=== PATIENT | female | born 1965 | race Caucasian/White ===

== ENCOUNTER 2016-10-11 10:44 | Emergency (ER) | payer BC ==
[~2016-10-11] VITALS: Ht 160 cm; Wt 65.0 kg
[~2016-10-11 10:44] MED LIST: ALPRAZOLAM ER0.5 MG; CEFUROXIME500 MG; LEVOTHYROXINE75 MCG; MOBIC7.5 MG PO; OXYCODONE-APAP1 EAC6
[2016-10-11 12:08] LABS: ADD MIUA? YES; BILIRUBIN NEGATIVE; BLOOD SMALL; COLOR YELLOW ((YELLOW)); GLUCOSE (STRIP) NEGATIVE; KETONES NEGATIVE; LEUKOCYTES SMALL; NITRITE NEGATIVE; PROTEIN (STRIP) 30; SPECIFIC GRAVITY 1.012 (1.000-1.030); UROBILINOGEN 0.2 MG/DL (0.2-1.0)
[2016-10-11 12:19] LABS: BACTERIA 1+ /HPF; EPITHELIAL CELLS RARE /HPF; MUCUS TRACE /LPF; RED BLOOD CELLS 15-20 /HPF (0-5); UCUL ADDED? NO; WHITE BLOOD CELLS 15-20 /HPF (0-5)
[2016-10-11 12:30] LABS: EOSINOPHIL (%) 0.3 % (0-5); HEMATOCRIT 36.5 % (36.0-46.0); LYMPHOCYTE COUNT 0.7 K/uL (1.0-2.8); MCH 31.1 PG (29.0-34.0); MCHC 33.7 G/DL (30.0-36.0); MCV 92.2 FL (83-99); MEAN PLAT.VOLUME 9.6 uM^3 (9.5-12.4); MONOCYTE (%) 9.7 % (3-12); MONOCYTE COUNT 0.7 K/uL (0-0.8); NEUTROPHIL (%) 79.3 % (45-76); NEUTROPHIL COUNT 5.7 K/uL (1.8-6.4); PLATELET COUNT 233 K/uL (156-360); RBC DIS.WIDTH-CV 12.8 % (11.8-14.6); RBC DIS.WIDTH-SD 42.2 % (39-53); RED BLOOD COUNT 3.96 M/uL (3.80-5.20); WHITE BLOOD COUNT 7.1 K/uL (4.1-10.2)
[2016-10-11 12:45] LABS: AMYLASE 24 IU/L (1-118); CHLORIDE 104 mEq/L (99-109); POTASSIUM 4.1 mEq/L (3.7-5.4); SODIUM 140 mEq/L (136-147)
[2016-10-11 12:47] LABS: GLUCOSE 96 mg/dL (70-99)
[2016-10-11 12:48] LABS: ANION GAP 9 MEQ/L (2-14)
[2016-10-11 12:49] LABS: TOTAL BILIRUBIN 0.6 mg/dL (0.0-1.0)
[2016-10-11 12:50] LABS: ALKALINE PHOSPHATASE 65 IU/L (3-129)
[2016-10-11 12:51] LABS: GFR ESTIMATE (CALCULATED) > 59 mL/min/
[2016-10-11 12:52] LABS: UREA NITROGEN (BUN) 11 mg/dL (9-23)
[2016-10-11 12:54] LABS: LIPASE 14 U/L (1.0-51.0)
[2016-10-11 13:00] LABS: QUANTITATIVE HCG < 4.0 MIU/ML
[2016-10-11 16:10] VITALS: BP 108/67
[2016-10-12] MEDS ORDERED: SYNTHROID100 MCG PO (09:30)
[2016-10-12] MEDS ORDERED: EFFEXOR XR75 MG PO (09:30)
[2016-10-12] MEDS ORDERED: LETROZOLE2.5 MG PO (09:30)
[2016-10-12] MEDS ORDERED: LAMICTAL100 MG PO (09:31)
[2016-10-12] MEDS ORDERED: CLONAZEPAM1 MG PO (09:34)
[2016-10-12] MEDS ORDERED: ZOFRAN8 MG PO (09:34)
[2016-10-12] MEDS ORDERED: OXYCODONE-APAP1 EACH PO (09:34)
[2016-10-12] MEDS ORDERED: FLEXERIL10 MG PO (09:34)
[2016-10-12] MEDS ORDERED: REGLAN10 MG PO (15:33)
== END 2016-10-11 16:13 | disposition home or self-care (01) ==
LOC: EME 10:44
PROVIDERS: Physician Assistant
DX: N12 Tubulo-interstitial nephritis, not specified as acute or chronic (principal); N39.0 Urinary tract infection, site not specified; R11.2 Nausea with vomiting, unspecified; G89.29 Other chronic pain; E03.9 Hypothyroidism, unspecified; Z87.891 Personal history of nicotine dependence
CPT/HCPCS: 71020; 74176; 80053; 81003; 82150; 83690; 84702; 85025; 87077; 87086; 87186; 99281; 99285; J0744; J1885; J2405; J3010; J7030

== ENCOUNTER 2016-10-12 10:17 | Emergency (ER) | payer BC ==
[~2016-10-12] VITALS: Ht 160 cm; Wt 75.0 kg
[~2016-10-12 10:17] MED LIST changes: +CLONAZEPAM1 MG PO; +EFFEXOR XR75 MG PO; +FLEXERIL10 MG PO; +LAMICTAL100 MG PO; +LETROZOLE2.5 MG PO; +OXYCODONE-APAP1 EACH PO; +SYNTHROID100 MCG PO; +ZOFRAN8 MG PO
[2016-10-12 12:13] LABS: EOSINOPHIL (%) 1.4 % (0-5); EOSINOPHIL COUNT 0.1 K/uL (0-0.3); HEMATOCRIT 35.5 % (36.0-46.0); IMMATURE GRANULOCYTE (%) 0.3 % (0.0-0.7); IMMATURE GRANULOCYTE COUNT 0.2 K/uL; LYMPHOCYTE COUNT 0.9 K/uL (1.0-2.8); MCH 31.3 PG (29.0-34.0); MCHC 33.8 G/DL (30.0-36.0); MCV 92.7 FL (83-99); MEAN PLAT.VOLUME 9.7 uM^3 (9.5-12.4); MONOCYTE (%) 9.3 % (3-12); MONOCYTE COUNT 0.6 K/uL (0-0.8); NEUTROPHIL COUNT 4.8 K/uL (1.8-6.4); PLATELET COUNT 275 K/uL (156-360); RBC DIS.WIDTH-CV 12.8 % (11.8-14.6); RBC DIS.WIDTH-SD 42.4 % (39-53); RED BLOOD COUNT 3.83 M/uL (3.80-5.20); WHITE BLOOD COUNT 6.4 K/uL (4.1-10.2)
[2016-10-12 12:23] LABS: CHLORIDE 104 mEq/L (99-109); POTASSIUM 4.4 mEq/L (3.7-5.4); SODIUM 140 mEq/L (136-147)
[2016-10-12 12:25] LABS: GLUCOSE 87 mg/dL (70-99)
[2016-10-12 12:26] LABS: ANION GAP 9 MEQ/L (2-14)
[2016-10-12 12:27] LABS: TOTAL BILIRUBIN 0.6 mg/dL (0.0-1.0)
[2016-10-12 12:29] LABS: ALKALINE PHOSPHATASE 85 IU/L (3-129); GFR ESTIMATE (CALCULATED) > 59 mL/min/
[2016-10-12 12:30] LABS: UREA NITROGEN (BUN) 12 mg/dL (9-23)
[2016-10-12 13:29] LABS: ADD MIUA? YES; BILIRUBIN NEGATIVE; BLOOD NEGATIVE; COLOR YELLOW ((YELLOW)); GLUCOSE (STRIP) NEGATIVE; KETONES NEGATIVE; LEUKOCYTES TRACE; NITRITE NEGATIVE; PROTEIN (STRIP) NEGATIVE; SPECIFIC GRAVITY 1.014 (1.000-1.030); UROBILINOGEN 0.2 MG/DL (0.2-1.0)
[2016-10-12 13:33] LABS: BACTERIA NONE SEEN /HPF; EPITHELIAL CELLS RARE /HPF; HYALINE CASTS 0-5 /LPF; MUCUS TRACE /LPF; UCUL ADDED? NO; WHITE BLOOD CELLS 15-20 /HPF (0-5)
[2016-10-12 13:41] LABS: LIPASE 12 U/L (1.0-51.0)
[2016-10-12] MEDS ORDERED: REGLAN10 MG PO (15:33)
[2016-10-12 16:40] VITALS: BP 116/83
== END 2016-10-12 16:40 | disposition home or self-care (01) ==
LOC: EME 10:17
PROVIDERS: Physician Assistant
DX: N12 Tubulo-interstitial nephritis, not specified as acute or chronic (principal); E03.9 Hypothyroidism, unspecified; Z86.000 Personal history of in-situ neoplasm of breast; Z88.6 Allergy status to analgesic agent
CPT/HCPCS: 74177; 80053; 81003; 83690; 85025; 99281; 99285; J0696; J2765; J3010; J7050; J7120

== ENCOUNTER 2017-08-21 17:15 | Emergency (ER) | payer BC ==
[~2017-08-21] VITALS: Ht 160 cm; Wt 77.6 kg
[~2017-08-21 17:15] MED LIST changes: +REGLAN10 MG PO
[2017-08-21 17:55] LABS: HEMATOCRIT 41.3 % (36.0-46.0); MCHC 33.9 G/DL (30.0-36.0); MCV 97.4 FL (83-99); MEAN PLAT.VOLUME 10.4 uM^3 (9.5-12.4); PLATELET COUNT 180 K/uL (156-360); RBC DIS.WIDTH-CV 14.4 % (11.8-14.6); RBC DIS.WIDTH-SD 51.6 % (39-53); RED BLOOD COUNT 4.24 M/uL (3.80-5.20); WHITE BLOOD COUNT 3.8 K/uL (4.1-10.2)
[2017-08-21 18:05] LABS: CHLORIDE 104 mEq/L (99-109)
[2017-08-21 18:06] LABS: POTASSIUM 4.1 mEq/L (3.7-5.4); SODIUM 140 mEq/L (136-147)
[2017-08-21 18:07] LABS: GLUCOSE 97 mg/dL (70-99)
[2017-08-21 18:09] LABS: ANION GAP 13 MEQ/L (2-14)
[2017-08-21 18:11] LABS: GFR ESTIMATE (CALCULATED) > 59 mL/min/
[2017-08-21 18:12] LABS: UREA NITROGEN (BUN) 22 mg/dL (9-23)
[2017-08-21 18:15] LABS: TROP-I INTERPRETATION NEGATIVE; TROPONIN-I < 0.01 ng/mL (0.0-0.30)
[2017-08-21 18:43] LABS: ADD MIUA? YES; BILIRUBIN NEGATIVE; BLOOD NEGATIVE; COLOR YELLOW ((YELLOW)); GLUCOSE (STRIP) NEGATIVE; KETONES NEGATIVE; LEUKOCYTES TRACE; NITRITE NEGATIVE; PROTEIN (STRIP) 30; SPECIFIC GRAVITY 1.029 (1.000-1.030); UROBILINOGEN 0.2 MG/DL (0.2-1.0)
[2017-08-21 18:59] LABS: BACTERIA RARE /HPF; EPITHELIAL CELLS RARE /HPF; MUCUS 2+ /LPF; WHITE BLOOD CELLS 15-20 /HPF (0-5)
[2017-08-21 19:14] VITALS: BP 101/70
== END 2017-08-21 19:20 | disposition home or self-care (01) ==
LOC: EME 17:15
PROVIDERS: Nurse Practitioner Family
DX: R55 Syncope and collapse (principal); Z85.3 Personal history of malignant neoplasm of breast; M79.7 Fibromyalgia; E03.9 Hypothyroidism, unspecified; F32.9 Major depressive disorder, single episode, unspecified; Z92.21 Personal history of antineoplastic chemotherapy; Z88.5 Allergy status to narcotic agent; Z88.8 Allergy status to other drugs, medicaments and biological substances; Z87.891 Personal history of nicotine dependence
CPT/HCPCS: 71020; 80048; 81003; 84484; 85027; 93005; 99281; 99285; J7030